=== PATIENT | male | born 1955 | race African-American/Black ===

== ENCOUNTER 2023-02-12 10:10 | Inpatient (IN) | payer OTHER, MEDICARE ==
[~2023-02-12] VITALS: Ht 172.7 cm; Wt 73.0 kg
[~2023-02-12 10:10] MED LIST: NO MEDS TO REPORT
[2023-02-12] MEDS ORDERED: SODIUM CHLORIDE 0.9% 1,000 ML IV ONE ×2 (11:15→15:00)
[2023-02-12] MEDS ORDERED: ONDANSETRON HCL 4MG/2ML INJ IV ONE (11:15)
[2023-02-12] MEDS ORDERED: FAMOTIDINE 20MG/2ML VIAL IV ONE (11:15)
[2023-02-12 12:05] LABS: CHLORIDE 107 mEq/L (98-107)
[2023-02-12 12:20] LABS: BASOPHILS % 0.2 % (0.0-2.0); EOSINOPHILS % 0.1 % (0.0-5.0); HEMATOCRIT. 44.3 % (42.0-52.0); HEMOGLOBIN. 14.6 g/dL (14.0-18.0); LYMPHOCYTES % 14.1 % (20.0-50.0); MEAN CORPUSCULAR HEMOGLOBIN 31.9 pg (28.0-32.0); MEAN CORPUSCULAR VOLUME 96.5 fL (80.0-94.0); MEAN PLATELET VOLUME 7.7 fl (7.4-10.4); MONOCYTES % 4.1 % (2.0-8.0); NEUTROPHILS % 81.5 % (40.0-76.0); PLATELET 265 x1000/uL (130-400); RED BLOOD CELL COUNT 4.59 mill/uL (4.7-6.1); RED CELL DISTRIBUTION WIDTH 12.4 % (11.6-14.6)
[2023-02-12 12:28] LABS: PROTHROMBIN TIME 11.2 sec (9.6-11.0)
[2023-02-12] MEDS ORDERED: KETOROLAC 30MG/ML VIAL IV ONE (12:30)
[2023-02-12] MEDS ORDERED: MORPHINE SULFATE 4 MG/ML CPJ (NOT FOR IM USE) IV NR (15:00)
[2023-02-12] MEDS ORDERED: IOHEXOL-300 100 ML BOTTLE ONE (15:02)
[2023-02-12] MEDS ORDERED: ACETAMINOPHEN 650MG SUPP PR PRN ×2 (18:30)
[2023-02-12] MEDS ORDERED: ONDANSETRON HCL 4MG/2ML INJ IV PRN (18:30)
[2023-02-12] MEDS: LORAZEPAM 2MG/ML CPJ IV PRN (19:48)
[2023-02-12] MEDS: PANTOPRAZOLE SODIUM 40 MG/VIAL IV SCH ×2 (19:48→20:00)
[2023-02-12] MEDS: KETOROLAC 30MG/ML VIAL IV PRN (19:49)
[2023-02-12] MEDS: DEXT 5%/0.9% NACL 1,000 ML IV SCH (20:00)
[2023-02-12] MEDS ORDERED: ENOXAPARIN 40MG/0.4ML SYR SUBCUT SCH (20:00)
[2023-02-12 22:13] LABS: CREATINE KINASE 162 IU/L (39-308)
[2023-02-13] VITALS (7 sets, daily range): BP systolic 115–145; BP diastolic 64–86
[2023-02-13] MEDS: DEXT 5%/0.9% NACL 1,000 ML IV SCH (01:33)
[2023-02-13 05:44] LABS: BASOPHILS % 0.3 % (0.0-2.0); HEMATOCRIT. 41.6 % (42.0-52.0); HEMOGLOBIN. 13.9 g/dL (14.0-18.0); LYMPHOCYTES % 25.8 % (20.0-50.0); MEAN CORPUSCULAR HEMOGLOBIN 31.3 pg (28.0-32.0); MEAN CORPUSCULAR VOLUME 93.6 fL (80.0-94.0); MEAN PLATELET VOLUME 7.6 fl (7.4-10.4); MONOCYTES % 11.5 % (2.0-8.0); NEUTROPHILS % 62.4 % (40.0-76.0); PLATELET 228 x1000/uL (130-400); RED BLOOD CELL COUNT 4.44 mill/uL (4.7-6.1); RED CELL DISTRIBUTION WIDTH 12.2 % (11.6-14.6)
[2023-02-13] MEDS: KETOROLAC 30MG/ML VIAL IV PRN (06:20)
[2023-02-13 06:36] LABS: CHLORIDE 113 mEq/L (98-107)
[2023-02-13 06:52] LABS: CREATINE KINASE 162 IU/L (39-308); T4 FREE 1.01 ng/dL (0.76-1.46)
[2023-02-13] MEDS: LORAZEPAM 2MG/ML CPJ IV PRN (11:02)
[2023-02-13] MEDS: PANTOPRAZOLE SODIUM 40 MG/VIAL IV SCH (18:00)
[2023-02-13] MEDS: METOCLOPRAMIDE HCL 10MG/2ML VIAL IV SCH ×2 (18:00→18:01)
[2023-02-13] MEDS ORDERED: KETOROLAC 30MG/ML VIAL IV PRN ×2 (18:30→18:45)
== END 2023-02-13 20:44 | disposition short-term general hospital (02) | DRG 390 ==
LOC: ER 10:33 → 6EST 17:30 → ENRESERV 23:08
PROVIDERS: ADMIT Internal Medicine; ATTEND Internal Medicine
DX: K56.609 Unspecified intestinal obstruction, unspecified as to partial versus complete obstruction (principal); E05.90 Thyrotoxicosis, unspecified without thyrotoxic crisis or storm; I10 Essential (primary) hypertension; Z79.899 Other long term (current) drug therapy; Z85.038 Personal history of other malignant neoplasm of large intestine
CPT/HCPCS: 36415; 74018; 74177; 80048; 80053; 82550; 84439; 84443; 84484; 85025; 99285; C9113; J1650; J1885; J2060; J2270; J2405; J2765; J3490; J7030; Q9967